=== PATIENT | female | born 1985 | race Caucasian/White ===

== ENCOUNTER 2020-02-11 21:48 | Emergency (ER) | payer MEDICAID ==
[~2020-02-11] VITALS: Ht 157.5 cm; Wt 77.3 kg
--- NOTE | 2020-02-11 22:31 | NUR ---
made aware pt states "i dont feel right" pts HR is in the 120's
--- NOTE | 2020-02-11 23:02 | NUR ---
pt started yelling out for help, when i arrived she was clutching her cheast and saying her cheast hurt really bad, hr was 156. Ekg was done and made aware.
--- NOTE | 2020-02-11 23:04 | NUR ---
vs retook hr 104
[2020-02-11] MEDS ORDERED: LORazepam 2 mg/ml vial IM ONE (23:05)
[2020-02-12 00:52] VITALS: BP 91/64
== END 2020-02-12 00:54 | disposition home or self-care (01) ==
LOC: ER 21:52
DX: S80.862A Insect bite (nonvenomous), left lower leg, initial encounter (principal); R20.2 Paresthesia of skin; F41.9 Anxiety disorder, unspecified; F32.9 Major depressive disorder, single episode, unspecified; Z98.890 Other specified postprocedural states; Z72.89 Other problems related to lifestyle; W57.XXXA Bitten or stung by nonvenomous insect and other nonvenomous arthropods, initial encounter; Y93.89 Activity, other specified; Y92.89 Other specified places as the place of occurrence of the external cause; Y99.8 Other external cause status
CPT/HCPCS: 93005; 96372; 99285; J2060

== ENCOUNTER 2020-04-19 16:17 | Emergency (ER) | payer MEDICAID ==
[~2020-04-19] VITALS: Ht 157.5 cm; Wt 79.5 kg
[2020-04-19 17:55] VITALS: BP 125/92
--- NOTE | 2020-04-19 18:44 | NUR ---
pt is resting quietly on [facility], waiting for linen tech
== END 2020-04-19 20:05 | disposition home or self-care (01) ==
LOC: ER 16:18
DX: M54.32 Sciatica, left side (principal); R20.2 Paresthesia of skin; F41.9 Anxiety disorder, unspecified; F32.9 Major depressive disorder, single episode, unspecified; Z98.890 Other specified postprocedural states; Z72.89 Other problems related to lifestyle
CPT/HCPCS: 93971; 99284

== ENCOUNTER 2020-09-05 15:27 | Emergency (ER) | payer MEDICAID ==
[~2020-09-05] VITALS: Ht 157.5 cm; Wt 79.0 kg
[2020-09-05 15:49] VITALS: BP 179/117
[2020-09-05] MEDS ORDERED: LORA-269 PO (16:15)
[2020-09-05] MEDS ORDERED: AMOX500C2 PO (16:15)
== END 2020-09-05 16:22 | disposition home or self-care (01) ==
LOC: ER 15:27
DX: K08.89 Other specified disorders of teeth and supporting structures (principal); F41.9 Anxiety disorder, unspecified; F32.9 Major depressive disorder, single episode, unspecified; Z72.89 Other problems related to lifestyle; Z98.891 History of uterine scar from previous surgery; Z79.2 Long term (current) use of antibiotics; Z79.899 Other long term (current) drug therapy
CPT/HCPCS: 99283

== ENCOUNTER 2020-10-05 13:11 | Emergency (ER) | payer MEDICAID ==
[~2020-10-05] VITALS: Ht 157.5 cm; Wt 72.4 kg
[~2020-10-05 13:11] MED LIST: LORA-269 PO
[2020-10-05 13:52] VITALS: BP 130/105
[2020-10-06] MEDS ORDERED: LORA-269 PO (17:10)
== END 2020-10-05 16:11 | disposition left against medical advice (07) ==
LOC: ER 13:12
DX: R00.2 Palpitations (principal); F41.9 Anxiety disorder, unspecified; F32.9 Major depressive disorder, single episode, unspecified; Z53.21 Procedure and treatment not carried out due to patient leaving prior to being seen by health care provider
CPT/HCPCS: 93005

== ENCOUNTER 2020-10-06 16:20 | Emergency (ER) | payer MEDICAID ==
[~2020-10-06] VITALS: Ht 157.5 cm; Wt 77.3 kg
[2020-10-06 16:33] VITALS: BP 140/103
[2020-10-06] MEDS ORDERED: LORazepam 1 MG tablet PO ONE (17:10)
[2020-10-06] MEDS ORDERED: LORA-269 PO (17:10)
== END 2020-10-06 17:34 | disposition home or self-care (01) ==
LOC: ER 16:21
DX: F41.9 Anxiety disorder, unspecified (principal); F32.9 Major depressive disorder, single episode, unspecified; Z98.890 Other specified postprocedural states; Z72.89 Other problems related to lifestyle; Z79.899 Other long term (current) drug therapy
CPT/HCPCS: 93005; 99283

== ENCOUNTER 2020-10-08 14:27 | Emergency (ER) | payer MEDICAID ==
[~2020-10-08] VITALS: Ht 157.5 cm; Wt 81.8 kg
[2020-10-08 14:38] VITALS: BP 142/84
== END 2020-10-08 15:36 | disposition home or self-care (01) ==
LOC: ER 14:28
DX: F41.9 Anxiety disorder, unspecified (principal); E05.90 Thyrotoxicosis, unspecified without thyrotoxic crisis or storm; F32.9 Major depressive disorder, single episode, unspecified; Z98.890 Other specified postprocedural states; Z72.89 Other problems related to lifestyle; Z79.899 Other long term (current) drug therapy
CPT/HCPCS: 99281

== ENCOUNTER 2020-11-03 16:23 | Emergency (ER) | payer MEDICAID ==
[~2020-11-03] VITALS: Ht 157.5 cm; Wt 84.1 kg
[2020-11-03 17:30] LABS: BASOPHILS % (AUTO) 0.5 % (0-1); EOSINOPHILS % (AUTO) 0.7 % (0-6); HEMATOCRIT 38.9 % (35.0-45.0); HEMOGLOBIN 13.1 g/dl (12.0-16.0); LYMPHOCYTES # (AUTO) 2.3 X10'3 (1.1-4.8); LYMPHOCYTES % (AUTO) 35.3 % (21-51); MEAN CORPUSCULAR HEMOGLOBIN 30.4 PG (27.0-31.0); MEAN CORPUSCULAR HGB CONC 33.8 g/dL (33.0-36.5); MEAN CORPUSCULAR VOLUME 90.2 FL (78-98); MEAN PLATELET VOLUME 8.3 FL (7.4-10.4); MONOCYTES # (AUTO) 0.5 X10'3 (0-0.9); MONOCYTES % (AUTO) 8.2 % (2-12); NEUTROPHILS # (AUTO) 3.6 X10'3 (1.8-7.7); NEUTROPHILS % (AUTO) 55.3 % (42-75); PLATELET COUNT 287 X10'3 (140-440); RED BLOOD COUNT 4.31 X10'6 (4.20-5.60); RED CELL DISTRIBUTION WIDTH 13.2 % (11.5-14.5); WHITE BLOOD COUNT 6.5 X10'3 (4.5-11.0)
[2020-11-03 17:45] LABS: ALANINE AMINOTRANSFERASE 20 U/L (12-78); ALBUMIN 3.8 G/DL (3.4-5.0); ALBUMIN/GLOBULIN RATIO 1.1 (1.1-1.5); ALKALINE PHOSPHATASE 97 IU/L (46-116); ANION GAP 8 (8-16); ASPARTATE AMINO TRANSFERASE 13 U/L (10-37); BILIRUBIN,TOTAL 0.2 MG/DL (0.1-1.0); BLOOD UREA NITROGEN 9 MG/DL (7-18); BUN/CREATININE RATIO 11.3 (6.6-38.0); CALCIUM 8.7 MG/DL (8.5-10.1); CHLORIDE 104 MMOL/L (99-107); GLUCOSE 93 MG/DL (70-104); POTASSIUM 3.9 MMOL/L (3.5-5.1); SODIUM 139 MMOL/L (135-145); TOTAL CARBON DIOXIDE 26.8 MMOL/L (24-32); TOTAL PROTEIN 7.4 G/DL (6.4-8.2); eGFR 81 ML/MIN
[2020-11-03 18:34] LABS: CLARITY,URINE CLEAR (Clear); COLOR,URINE YELLOW (Yellow); GLUCOSE, URINE NEGATIVE (Neg); KETONES,URINE NEGATIVE (Neg); LEUKOCYTE ESTERASE ,URINE NEGATIVE (Neg); NITRITES, URINE NEGATIVE (Neg); OCCULT BLOOD,URINE TRACE-LYSED (Neg); PH,URINE 6.5 (4.8-8.0); PROTEIN,URINE NEGATIVE (Neg); UA COLLECTION TYPE VOIDED; UROBILINOGEN,URINE 0.2 E.U/dL (0.2-1.0)
[2020-11-03 18:35] LABS: URINE HCG NEGATIVE (NEG)
[2020-11-03 19:09] LABS: BACTERIA,URINE 1+ /HPF (Neg); RBC,URINE 0-2 /HPF (0-2); SQUAMOUS EPITHELIAL CELL,UR MODERATE /LPF (FEW); WBC,URINE 0-4 /HPF (0-4)
[2020-11-03 19:34] VITALS: BP 107/75
== END 2020-11-03 19:36 | disposition home or self-care (01) ==
LOC: ER 16:24
DX: F41.9 Anxiety disorder, unspecified (principal); R42 Dizziness and giddiness; H53.9 Unspecified visual disturbance; F32.9 Major depressive disorder, single episode, unspecified; Z98.890 Other specified postprocedural states; Z72.89 Other problems related to lifestyle; Z79.899 Other long term (current) drug therapy
CPT/HCPCS: 36415; 80053; 81001; 81025; 84443; 85025; 93005; 99284

== ENCOUNTER 2020-11-13 18:40 | Emergency (ER) | payer MEDICAID ==
[~2020-11-13] VITALS: Ht 157.5 cm; Wt 74.5 kg
[2020-11-13 18:52] VITALS: BP 134/88
[2020-11-13] MEDS ORDERED: ibuprofen tablet 400 MG TABLET PO ONE (19:15)
[2020-11-13] MEDS ORDERED: LORazepam 1 MG tablet PO ONE ×2 (19:15→20:40)
[2020-11-13] MEDS ORDERED: LORA-269 PO (20:38)
[2020-11-13] MEDS ORDERED: ketorolac trometh. 30mg/ml inj. IM ONE (20:40)
== END 2020-11-13 20:53 | disposition home or self-care (01) ==
LOC: ER 18:40
DX: F41.9 Anxiety disorder, unspecified (principal); R05 Cough; M79.18 Myalgia, other site; F32.9 Major depressive disorder, single episode, unspecified; Z72.89 Other problems related to lifestyle; Z98.890 Other specified postprocedural states; Z79.899 Other long term (current) drug therapy
CPT/HCPCS: 71045; 96372; 99284; J1885

== ENCOUNTER 2020-11-20 16:37 | Emergency (ER) | payer MEDICAID ==
[~2020-11-20] VITALS: Ht 157.5 cm; Wt 75.8 kg
[2020-11-20 16:53] VITALS: BP 122/80
== END 2020-11-20 17:15 | disposition left against medical advice (07) ==
LOC: ER 16:37
DX: F41.9 Anxiety disorder, unspecified (principal); F32.9 Major depressive disorder, single episode, unspecified; F43.10 Post-traumatic stress disorder, unspecified; Z98.891 History of uterine scar from previous surgery; Z72.89 Other problems related to lifestyle; Z79.899 Other long term (current) drug therapy
CPT/HCPCS: 99281

== ENCOUNTER 2021-01-31 15:50 | Emergency (ER) | payer MEDICAID ==
[~2021-01-31] VITALS: Ht 157.5 cm; Wt 70.0 kg
[2021-01-31 16:05] VITALS: BP 132/81
[2021-01-31] MEDS ORDERED: LORazepam 1 MG tablet PO ONE (16:45)
[2021-01-31] MEDS ORDERED: TERB250T4 PO (16:56)
[2021-01-31] MEDS ORDERED: HYDR-3686 PO (16:56)
== END 2021-01-31 17:00 | disposition home or self-care (01) ==
LOC: ER 15:51
DX: F41.9 Anxiety disorder, unspecified (principal); F32.9 Major depressive disorder, single episode, unspecified; Z98.890 Other specified postprocedural states; Z72.89 Other problems related to lifestyle; Z79.899 Other long term (current) drug therapy
CPT/HCPCS: 99283

== ENCOUNTER 2021-04-18 05:03 | Emergency (ER) | payer MEDICAID ==
[~2021-04-18] VITALS: Ht 162.6 cm; Wt 56.8 kg
[2021-04-18 05:09] VITALS: BP 113/79
--- NOTE | 2021-04-18 07:30 | NUR ---
Pt concerned about not being able to get a ride home and wishes to leave. MD Kalia Cox updated and informed pt has not had labs drawn yet. Pt to be discharged without labwork drawn, gave verbal DC instructions to pt.
== END 2021-04-18 07:50 | disposition home or self-care (01) ==
LOC: ER 05:03
DX: U07.1 COVID-19 (principal); Z72.89 Other problems related to lifestyle; Z98.891 History of uterine scar from previous surgery; Z79.899 Other long term (current) drug therapy
CPT/HCPCS: 71045; 93005; 99283

== ENCOUNTER 2021-05-28 15:02 | Emergency (ER) | payer MEDICAID ==
[~2021-05-28] VITALS: Ht 157.5 cm; Wt 65.9 kg
[2021-05-28 15:23] VITALS: BP 144/88
[2021-05-28] MEDS ORDERED: azithromycin 250mg tablet PO ONE (15:25)
[2021-05-28] MEDS ORDERED: CefTRIAXone 500MG IM Kit w/LIDOcaine IM ONE (15:25)
[2021-05-28 15:49] LABS: CLARITY,URINE SLIGHTLY CLOUDY (Clear); COLOR,URINE YELLOW (Yellow); GLUCOSE, URINE NEGATIVE (Neg); KETONES,URINE NEGATIVE (Neg); PROTEIN,URINE TRACE mg/dl (Neg); UA COLLECTION TYPE VOIDED; URINE HCG NEGATIVE (NEG)
[2021-05-28 15:50] LABS: NITRITES, URINE NEGATIVE (Neg); OCCULT BLOOD,URINE TRACE-INTACT (Neg); UROBILINOGEN,URINE 0.2 E.U/dL (0.2-1.0)
[2021-05-28 15:51] LABS: LEUKOCYTE ESTERASE ,URINE NEGATIVE (Neg)
[2021-05-28] MEDS ORDERED: DOXY100C43 PO (15:53)
[2021-05-28] MEDS ORDERED: LIDO20SO16 PO (15:53)
[2021-05-28] MEDS ORDERED: PENICILLIN G BENZATHINE 2,400,000 UNIT/4 ML SYRINGE IM ONE (15:55)
[2021-05-28 15:56] LABS: MUCUS STRANDS MODERATE /LPF (Neg); SQUAMOUS EPITHELIAL CELL,UR MANY /LPF (FEW)
[2021-05-28 16:00] LABS: BACTERIA,URINE FEW /HPF (Neg); WBC,URINE 0-4 /HPF (0-4)
[2021-05-28] MEDS ORDERED: CefTRIAXone 1000mg IM Kit (w/lidocaine diluent) IM ONE (16:00)
[2021-05-28 16:33] LABS: MONOTEST NEGATIVE (Neg)
== END 2021-05-28 16:50 | disposition home or self-care (01) ==
LOC: ER 15:03
DX: J02.9 Acute pharyngitis, unspecified (principal); F41.9 Anxiety disorder, unspecified; F32.9 Major depressive disorder, single episode, unspecified; Z79.899 Other long term (current) drug therapy
CPT/HCPCS: 36415; 81001; 81025; 86308; 86592; 87081; 87491; 87591; 87880; 96372; 99284; J0561; J0696

== ENCOUNTER 2021-05-30 11:59 | Emergency (ER) | payer MEDICAID ==
[~2021-05-30] VITALS: Ht 157.5 cm; Wt 70.5 kg
[~2021-05-30 11:59] MED LIST changes: +DOXY100C43 PO; +LIDO20SO16 PO
[2021-05-30 12:17] VITALS: BP 120/94
[2021-05-30] MEDS ORDERED: LIDO20SO16 PO (12:34)
[2021-05-30] MEDS ORDERED: NAPR-56 PO (12:34)
[2021-05-30] MEDS ORDERED: METH4TAB3 PO (12:34)
== END 2021-05-30 12:49 | disposition home or self-care (01) ==
LOC: ER 11:59
DX: J02.9 Acute pharyngitis, unspecified (principal); F41.9 Anxiety disorder, unspecified; F32.9 Major depressive disorder, single episode, unspecified; Z98.890 Other specified postprocedural states; Z72.89 Other problems related to lifestyle; Z79.2 Long term (current) use of antibiotics; Z79.899 Other long term (current) drug therapy
CPT/HCPCS: 99283

== ENCOUNTER → 2021-06-10 | Emergency (ER) | payer MEDICAID ==
[~2021-06-10] VITALS: Ht 157.5 cm; Wt 140.0 kg
[~2021-06-10] MED LIST changes: -DOXY100C43 PO; +METH4TAB3 PO; +NAPR-56 PO
[2021-06-10 16:48] VITALS: BP 112/81
[2021-06-10 17:21] LABS: BASOPHILS # (AUTO) 0.1 X10'3 (0-0.2); BASOPHILS % (AUTO) 0.9 % (0-1); EOSINOPHILS % (AUTO) 0.4 % (0-6); HEMATOCRIT 38.6 % (35.0-45.0); LYMPHOCYTES # (AUTO) 1.7 X10'3 (1.1-4.8); LYMPHOCYTES % (AUTO) 26.8 % (21-51); MEAN CORPUSCULAR HEMOGLOBIN 30.4 PG (27.0-31.0); MEAN CORPUSCULAR HGB CONC 33.6 g/dL (33.0-36.5); MEAN CORPUSCULAR VOLUME 90.4 FL (78-98); MEAN PLATELET VOLUME 7.9 FL (7.4-10.4); MONOCYTES # (AUTO) 0.4 X10'3 (0-0.9); MONOCYTES % (AUTO) 5.5 % (2-12); NEUTROPHILS # (AUTO) 4.3 X10'3 (1.8-7.7); NEUTROPHILS % (AUTO) 66.4 % (42-75); PLATELET COUNT 397 X10'3 (140-440); RED BLOOD COUNT 4.27 X10'6 (4.20-5.60); RED CELL DISTRIBUTION WIDTH 14.1 % (11.5-14.5); WHITE BLOOD COUNT 6.4 X10'3 (4.5-11.0)
[2021-06-10 17:31] LABS: HCG SERUM QL NEGATIVE
[2021-06-10 17:32] LABS: ALANINE AMINOTRANSFERASE 19 U/L (12-78); ALBUMIN 3.8 G/DL (3.4-5.0); ALKALINE PHOSPHATASE 89 IU/L (46-116); ANION GAP 12 (8-16); ASPARTATE AMINO TRANSFERASE 15 U/L (10-37); BILIRUBIN,TOTAL 0.5 MG/DL (0.1-1.0); BLOOD UREA NITROGEN 10 MG/DL (7-18); BUN/CREATININE RATIO 11.5 (6.6-38.0); CALCIUM 9.2 MG/DL (8.5-10.1); CHLORIDE 104 MMOL/L (99-107); CREATININE 0.87 MG/DL (0.40-0.90); GLUCOSE 134 MG/DL (70-104); POTASSIUM 4.1 MMOL/L (3.5-5.1); SODIUM 139 MMOL/L (135-145); TOTAL CARBON DIOXIDE 23.2 MMOL/L (24-32); TOTAL PROTEIN 7.8 G/DL (6.4-8.2); eGFR 73 ML/MIN
[2021-06-10 17:53] LABS: D-DIMER 0.41 MG/L FEU (0-0.50)
== END | disposition home or self-care (01) ==
LOC: ER 16:38
DX: R63.4 Abnormal weight loss (principal); F41.9 Anxiety disorder, unspecified; F32.9 Major depressive disorder, single episode, unspecified; R05.9 Cough, unspecified; R06.02 Shortness of breath; R42 Dizziness and giddiness; R11.2 Nausea with vomiting, unspecified
CPT/HCPCS: 36415; 80053; 84703; 85025; 85379; 93005; 99284

== ENCOUNTER 2021-11-27 19:03 | Emergency (ER) | payer MEDICAID ==
[~2021-11-27] VITALS: Ht 157.5 cm; Wt 70.5 kg
[~2021-11-27 19:03] MED LIST changes: -NAPR-56 PO
[2021-11-27 20:03] VITALS: BP 128/92
[2021-11-27] MEDS ORDERED: DIAZ2TAB3 PO (21:32)
[2021-11-27] MEDS ORDERED: LORazepam 1 MG tablet PO ONE (21:35)
== END 2021-11-27 21:51 | disposition home or self-care (01) ==
LOC: ER 19:04
DX: F32.A Depression, unspecified (principal); Z76.0 Encounter for issue of repeat prescription; F41.9 Anxiety disorder, unspecified; Z79.899 Other long term (current) drug therapy
CPT/HCPCS: 99283

== ENCOUNTER 2021-12-23 15:58 | Emergency (ER) | payer MEDICAID ==
[~2021-12-23] VITALS: Ht 157.5 cm; Wt 70.0 kg
[~2021-12-23 15:58] MED LIST changes: +DIAZ2TAB3 PO
[2021-12-23 16:13] VITALS: BP 125/88
[2021-12-23] MEDS ORDERED: DIAZ10TA4 PO (16:51)
== END 2021-12-23 17:07 | disposition home or self-care (01) ==
LOC: ER 16:00
DX: F41.9 Anxiety disorder, unspecified (principal); Z76.0 Encounter for issue of repeat prescription; F32.9 Major depressive disorder, single episode, unspecified; Z98.890 Other specified postprocedural states; Z72.89 Other problems related to lifestyle; Z79.899 Other long term (current) drug therapy
CPT/HCPCS: 99281

== ENCOUNTER 2022-01-02 14:52 | Emergency (ER) | payer MEDICAID ==
[~2022-01-02 14:52] MED LIST changes: +DIAZ10TA4 PO
== END 2022-01-02 16:08 | disposition left against medical advice (07) ==
LOC: ER 14:53
DX: S61.219A Laceration without foreign body of unspecified finger without damage to nail, initial encounter (principal); Z53.21 Procedure and treatment not carried out due to patient leaving prior to being seen by health care provider; X58.XXXA Exposure to other specified factors, initial encounter; Y93.89 Activity, other specified; Y92.89 Other specified places as the place of occurrence of the external cause; Y99.8 Other external cause status

== ENCOUNTER 2022-02-23 14:09 | Emergency (ER) | payer MEDICAID ==
[~2022-02-23] VITALS: Ht 157.5 cm; Wt 65.9 kg
[2022-02-23 14:15] VITALS: BP 110/74
[2022-02-23 15:22] LABS: URINE AMPHETAMINE SCREEN NEGATIVE (Neg); URINE BARBITUATE SCREEN NEGATIVE (Neg); URINE BENZODIAZEPINES SCREEN POSITIVE (Neg); URINE CANNABINOID SCREEN NEGATIVE (Neg); URINE COCAINE SCREEN NEGATIVE (Neg); URINE METHADONE SCREEN NEGATIVE (Neg); URINE PHENCYCLIDINE SCREEN NEGATIVE (Neg)
== END 2022-02-23 15:32 | disposition home or self-care (01) ==
LOC: ER 14:11
DX: R41.0 Disorientation, unspecified (principal); R11.10 Vomiting, unspecified; F41.9 Anxiety disorder, unspecified; F32.A Depression, unspecified; Z98.890 Other specified postprocedural states; Z79.899 Other long term (current) drug therapy
CPT/HCPCS: 80305; 99283

== ENCOUNTER 2022-08-12 16:38 | Emergency (ER) | payer MEDICAID ==
[~2022-08-12] VITALS: Ht 157.5 cm; Wt 65.0 kg
[2022-08-12] MEDS ORDERED: morphine 4 MG/ML inj SYRINge IV ONE (16:50)
[2022-08-12] MEDS ORDERED: normal saline 1000ML IV soln IVB ONE (16:50)
[2022-08-12] MEDS ORDERED: ondansetron/PF 4mg/2ml inj IV ONE (16:50)
[2022-08-12 17:56] LABS: BASOPHILS # (AUTO) 0.1 X10'3 (0-0.2); BASOPHILS % (AUTO) 0.6 % (0-1); EOSINOPHILS % (AUTO) 0.5 % (0-6); HEMOGLOBIN 12.2 g/dl (12.0-16.0); LYMPHOCYTES # (AUTO) 1.4 X10'3 (1.1-4.8); LYMPHOCYTES % (AUTO) 14.5 % (21-51); MEAN CORPUSCULAR HEMOGLOBIN 30.4 PG (27.0-31.0); MEAN CORPUSCULAR HGB CONC 33.9 g/dL (33.0-36.5); MEAN CORPUSCULAR VOLUME 89.5 FL (78-98); MEAN PLATELET VOLUME 8.3 FL (7.4-10.4); MONOCYTES # (AUTO) 0.4 X10'3 (0-0.9); MONOCYTES % (AUTO) 4.3 % (2-12); NEUTROPHILS # (AUTO) 7.8 X10'3 (1.8-7.7); NEUTROPHILS % (AUTO) 80.1 % (42-75); PLATELET COUNT 242 X10'3 (140-440); RED BLOOD COUNT 4.02 X10'6 (4.20-5.60); RED CELL DISTRIBUTION WIDTH 13.2 % (11.5-14.5); WHITE BLOOD COUNT 9.7 X10'3 (4.5-11.0)
[2022-08-12 18:08] LABS: ALANINE AMINOTRANSFERASE 17 U/L (12-78); ALBUMIN 3.8 G/DL (3.4-5.0); ALBUMIN/GLOBULIN RATIO 1.2 (1.1-1.5); ALKALINE PHOSPHATASE 87 IU/L (46-116); ANION GAP 3 (8-16); ASPARTATE AMINO TRANSFERASE 18 U/L (10-37); BILIRUBIN,TOTAL 0.3 MG/DL (0.1-1.0); BLOOD UREA NITROGEN 12 MG/DL (7-18); CALCIUM 8.7 MG/DL (8.5-10.1); CHLORIDE 106 MMOL/L (99-107); ETHANOL < 0.010 GM/DL (0.0-0.010); GLUCOSE 117 MG/DL (70-104); LIPASE 93 U/L (73-393); POTASSIUM 4.2 MMOL/L (3.5-5.1); SODIUM 138 MMOL/L (135-145); TOTAL CARBON DIOXIDE 29.2 MMOL/L (24-32); TOTAL PROTEIN 6.9 G/DL (6.4-8.2); eGFR 80 ML/MIN
[2022-08-12 18:09] VITALS: BP 117/81
[2022-08-12 18:55] LABS: URINE HCG NEGATIVE (NEG)
[2022-08-12] MEDS ORDERED: iohexol 300mg/ml 100ml inj. ONE (18:57)
[2022-08-12 19:00] LABS: CLARITY,URINE CLOUDY (Clear); COLOR,URINE YELLOW (Yellow); GLUCOSE, URINE NEGATIVE (Neg); KETONES,URINE NEGATIVE (Neg); LEUKOCYTE ESTERASE ,URINE NEGATIVE (Neg); NITRITES, URINE NEGATIVE (Neg); OCCULT BLOOD,URINE NEGATIVE (Neg); PROTEIN,URINE NEGATIVE (Neg); UROBILINOGEN,URINE 0.2 E.U/dL (0.2-1.0)
[2022-08-12 19:10] LABS: UA COLLECTION TYPE CLN CATCH MIDSTREAM
[2022-08-12 19:11] LABS: BACTERIA,URINE 2+ /HPF (Neg); MUCUS STRANDS FEW /LPF (Neg); SQUAMOUS EPITHELIAL CELL,UR MANY /LPF (FEW)
[2022-08-12 19:12] LABS: RBC,URINE 0-2 /HPF (0-2); WBC,URINE 0-4 /HPF (0-4)
== END 2022-08-12 19:10 | disposition left against medical advice (07) ==
LOC: ER 16:39
DX: R10.11 Right upper quadrant pain (principal); R11.2 Nausea with vomiting, unspecified; F41.9 Anxiety disorder, unspecified; F32.9 Major depressive disorder, single episode, unspecified; Z72.89 Other problems related to lifestyle; Z98.890 Other specified postprocedural states; Z79.899 Other long term (current) drug therapy
CPT/HCPCS: 36415; 80053; 80320; 81001; 81025; 83690; 85025; 96361; 96374; 96375; 99284; J2270; J2405; J3490; J7030; Q9967

== ENCOUNTER 2023-06-09 13:53 | Emergency (ER) | payer MEDICAID ==
[~2023-06-09] VITALS: Ht 157.5 cm; Wt 63.6 kg
[2023-06-09 13:56] VITALS: BP 125/88; PULSE 88; RESP 18; TEMP 98.5; O2SAT 96
== END 2023-06-09 14:48 | disposition left against medical advice (07) ==
LOC: ER 13:53
DX: H57.89 Other specified disorders of eye and adnexa (principal); Z53.21 Procedure and treatment not carried out due to patient leaving prior to being seen by health care provider
CPT/HCPCS: 99281

== ENCOUNTER 2024-01-09 14:14 | Emergency (ER) | payer MEDICAID ==
[~2024-01-09] VITALS: Ht 157.5 cm; Wt 72.7 kg
[2024-01-09 14:19] VITALS: TEMP 97.7
[2024-01-09 15:01] LABS: BASOPHILS % (AUTO) 0.3 % (0-1); EOSINOPHILS % (AUTO) 0.7 % (0-6); HEMATOCRIT 35.7 % (35.0-45.0); HEMOGLOBIN 11.8 g/dl (12.0-16.0); LYMPHOCYTES # (AUTO) 1.1 X10'3 (1.1-4.8); LYMPHOCYTES % (AUTO) 19.9 % (21-51); MEAN CORPUSCULAR HEMOGLOBIN 30.8 PG (27.0-31.0); MEAN CORPUSCULAR HGB CONC 32.9 g/dL (33.0-36.5); MEAN CORPUSCULAR VOLUME 93.4 FL (78-98); MEAN PLATELET VOLUME 8.1 FL (7.4-10.4); MONOCYTES # (AUTO) 0.5 X10'3 (0-0.9); MONOCYTES % (AUTO) 8.6 % (2-12); NEUTROPHILS # (AUTO) 3.7 X10'3 (1.8-7.7); NEUTROPHILS % (AUTO) 70.5 % (42-75); PLATELET COUNT 215 X10'3 (140-440); RED BLOOD COUNT 3.82 X10'6 (4.20-5.60); RED CELL DISTRIBUTION WIDTH 13.9 % (11.5-14.5); WHITE BLOOD COUNT 5.3 X10'3 (4.5-11.0)
[2024-01-09 15:22] LABS: ALANINE AMINOTRANSFERASE 32 U/L (12-78); ALBUMIN 3.4 G/DL (3.4-5.0); ALKALINE PHOSPHATASE 97 IU/L (46-116); ANION GAP 8 (8-16); ASPARTATE AMINO TRANSFERASE 28 U/L (10-37); BILIRUBIN,TOTAL 0.6 MG/DL (0.1-1.0); BLOOD UREA NITROGEN 15 MG/DL (7-18); BUN/CREATININE RATIO 21.7 (10.0-20.0); CALCIUM 8.4 MG/DL (8.5-10.1); CHLORIDE 101 MMOL/L (99-107); CREATININE 0.69 MG/DL (0.40-0.90); GLUCOSE 104 MG/DL (70-104); POTASSIUM 4.1 MMOL/L (3.5-5.1); SODIUM 135 MMOL/L (135-145); TOTAL CARBON DIOXIDE 26.2 MMOL/L (24-32); TOTAL PROTEIN 6.9 G/DL (6.4-8.2); eCRCL 87 ML/MIN; eGFR > 90 ML/MIN
[2024-01-09] MEDS: methylPREDNISolone sod succ 125mg/2ml vial IV ONE (16:00)
[2024-01-09 17:05] LABS: BILIRUBIN,URINE NEGATIVE (Neg); CLARITY,URINE CLEAR (Clear); COLOR,URINE YELLOW (Yellow); GLUCOSE, URINE NEGATIVE (Neg); KETONES,URINE 15 mg/dl (Neg); LEUKOCYTE ESTERASE ,URINE NEGATIVE (Neg); NITRITES, URINE NEGATIVE (Neg); OCCULT BLOOD,URINE NEGATIVE (Neg); PH,URINE 6.5 (4.8-8.0); PROTEIN,URINE NEGATIVE (Neg); URINE HCG NEGATIVE (NEG); UROBILINOGEN,URINE 0.2 E.U/dL (0.2-1.0)
[2024-01-09] MEDS: acetaminophen 1,000mg/100ml IV 100 ML IV ONE (17:08)
[2024-01-09] MEDS: acetaminophen 1,000mg/100ml IV 100 ML IV SCH (17:08)
[2024-01-09 17:43] LABS: UA COLLECTION TYPE CLN CATCH MIDSTREAM
[2024-01-09] MEDS: diazepam inj 5 MG/ML inj. IV ONE (18:46)
[2024-01-09 19:23] VITALS: BP 124/75; PULSE 71; RESP 16; O2SAT 98
== END 2024-01-09 19:52 | disposition left against medical advice (07) ==
LOC: ER 14:14
DX: R27.8 Other lack of coordination (principal); R55 Syncope and collapse; Z79.899 Other long term (current) drug therapy; Z98.890 Other specified postprocedural states
CPT/HCPCS: 36415; 70551; 80053; 81003; 81025; 85025; 96374; 96375; 99285; J0131; J2919; 64415; 70553

== ENCOUNTER 2024-12-18 10:19 | Emergency (ER) | payer MEDICAID ==
[~2024-12-18] VITALS: Ht 157.5 cm; Wt 93.4 kg
[2024-12-18 10:19] VITALS: BP 132/88; PULSE 75; RESP 16; O2SAT 98
--- NOTE | 2024-12-18 10:51 | Physician Documentation ---
History of Present Illness ~ Chief Complaint: Urinary Symptoms Stated Complaint: URINARY COMPLICATIONS Time Seen by MD: 10:41 OK to notify your PCP?: Yes Primary Medical Doctor: ERIN AT [facility] Source: patient Mode of Arrival: POV Exam Limitations: no limitations HPI 39-year-old female who is here with lower abdominal pain as well as urinary frequency for two days and pain with urination. Patient states it feels like when she has had urinary tract infections. No pre arrival treatment. No vaginal pain or discharge, flank pain, fever, chills, nausea or vomiting. Not on menstrual cycle, states that she has not had her cycle in months. Has not had intercourse in 2years. Medication Reconciliation Allergies: Coded Allergies: amantadine (Unverified Allergy, Unknown, 09/27/24) Scheduled Diazepam (Diazepam), 1 TAB PO DAILY Diazepam (Diazepam), 1 TAB PO HS Lidocaine Hcl (Xylocaine Viscous), 5 ML PO Q2H PRN SORE THROAT Lidocaine Hcl (Xylocaine Viscous), 5 ML PO Q2H PRN SORE THROAT Lorazepam (Ativan), 1 TAB PO Q8H Lorazepam (Ativan), 1 TAB PO Q12H Methylprednisolone (Medrol), 1 DOSPAK PO UD Scheduled PRN Lorazepam (Ativan), 1 TAB PO Q8H PRN for for anxiety/agitation Past Medical History Past Medical History: *INFECTIOUS DZ*, Colon Cancer, *PSYCH*, Anxiety, Depression Past Surgical History: , other Alcohol Use: Heavy Drug Use: none Lives In: Home Occupation: employed Review of Systems All Other Systems at this time: Reviewed and Negative Physical Exam Vital Signs: Temperature: 98.0, Source: Oral, Heart Rate: 75, Respiratory Rate: 16, BP: 132/88, Pulse Oximetry: 98, Weight: 93.400 Oxygen Flow Rate: 0 Physical Exam GENERAL: Alert, no acute distress. HEENT: NCAT, EOMI, PERRL. NECK: Supple, trachea midline. CARDIAC: Regular rate and rhythm, no murmurs, rubs, or gallops. RESPIRATORY: Equal breath sounds, clear to auscultation bilaterally, no respiratory distress. GASTROINTESTINAL: Non distended, soft, SUPRAPUBIC TTP, no guarding or rebound. No CVA ttp. MUSCULOSKELETAL: Normal gait. NEUROLOGICAL: Awake, alert, and oriented x 3. SKIN: Warm/dry, no pallor, no rash. PSYCH: Alert and appropriate. Affect congruent with mood. Speech is clear. Good eye contact. Progress Results/Orders Results/Orders Orders - WILLIE GREEN Ultrasound Kidney Non Vasc (12/18/24 11:35) Vital Signs 12/18/24 10:19 Temp 98.0 Pulse 75 Resp 16 B/P (MAP) 132/88 Pulse Ox 98 O2 Flow Rate 0 Laboratory Tests Test 12/18/24 10:24 Urine Specimen Description Cln catch midstream Urine Color Yellow Urine Clarity Slightly cloudy Urine pH 6.0 Urine Specific [place] >=1.030 Urine Protein Negative Urine Glucose (UA) Negative Urine Ketones Negative Urine Occult Blood Moderate H Urine Nitrite Negative Urine Bilirubin Negative Urine Urobilinogen 0.2 Urine Leukocyte Esterase Negative Urine RBC 3-10 Urine WBC 0-4 Urine Squamous Epithelial Cells Many Urine Bacteria 3+ Urine Mucus Few Urine Culture Indicated Not ind Volume Urine Centrifuged 10 ml Urine HCG, Qualitative Negative Urine Comment Medical Decision Making Urinary Diff Dx:Considerations: Include: AAA, , Aortic dissection, Appendicitis, Bowel obstruction, Cholelithiasis, Choleangitis, DJD, Ectopic , Hepatitis, HNP, Impaction, Intrauterine , Musculoskeletal p ain, Ovarian torsion, Pancreatitis, PID, Post-Op complication, Pyelonephritis, Renal failure, Strain, Urinary Obstruction, Urolithiasis, Urinary retention, UTI, Vaginitis Additional Comment DUE TO BLOOD IN URINE AND H/O KIDNEY STONES EVEN THOUGH PATIENT IS LAYING COMFORTABLY ON GURNEY AND DOES NOT PRESENT LIKE A KIDNEY STONE, I ORDERED U/S TO MAKE SURE NO INDIRECT EVIDENCE SUCH HYDRONEPHROSIS WHICH THERE WAS NOT. Departure Time of Disposition: 10:50 Disposition: 01 HOME / SELF CARE / HOMELESS Impression: Primary Impression: Hematuria Qualified Codes: R31.9 - Hematuria, unspecified Additional Impression: Suprapubic pain, acute Condition: Stable Discharge Instructions: Dysuria Additional Instructions: PYRIDIUM PRESCRIBED DISCUSSED URINE NEGATIVE FOR INFECTION U/S NEGATIVE FOR HYDRONEPHROSIS RETURN TO ER IF FLANK PAIN, NAUSEA, VOMITING, FEVER, CHILLS OR PAIN WITH URINATION DOES NOT RESOLVE Referrals: NO PRIMARY CARE PROVIDER (PCP) Prescriptions Phenazopyridine Hcl (Pyridium tablet) 100 Mg Tablet 2 TAB PO TID, #12 TAB Prov: WILLIE GREEN 12/18/24 Education Educated: Patient Educated regarding: diagnosis, treatment, need for follow up Signature Scribe Signature: x Attestation: WILLIE Troncoso Dec 18, 2024 10:51
[2024-12-18 11:14] LABS: BILIRUBIN,URINE NEGATIVE (Neg); CLARITY,URINE SLIGHTLY CLOUDY (Clear); COLOR,URINE YELLOW (Yellow); GLUCOSE, URINE NEGATIVE (Neg); KETONES,URINE NEGATIVE (Neg); LEUKOCYTE ESTERASE ,URINE NEGATIVE (Neg); NITRITES, URINE NEGATIVE (Neg); OCCULT BLOOD,URINE MODERATE (Neg); PROTEIN,URINE NEGATIVE (Neg); UROBILINOGEN,URINE 0.2 E.U/dL (0.2-1.0)
[2024-12-18 11:15] LABS: URINE HCG NEGATIVE (NEG)
[2024-12-18 11:18] LABS: UA COLLECTION TYPE CLN CATCH MIDSTREAM
[2024-12-18 11:19] LABS: MUCUS STRANDS FEW /LPF (Neg); SQUAMOUS EPITHELIAL CELL,UR MANY /LPF (FEW)
[2024-12-18 11:20] LABS: BACTERIA,URINE 3+ /HPF (Neg)
[2024-12-18 11:21] LABS: WBC,URINE 0-4 /HPF (0-4)
[2024-12-18 12:17] VITALS: TEMP 98
[2024-12-18] MEDS ORDERED: PHEN-786 PO (12:17)
--- NOTE | 2024-12-18 12:36 | RADIOLOGY REPORT ---
INDICATION: blood in urine, h/o kidney stones, lower abdominal pain TECHNIQUE: Multiple real-time sonographic images of the kidneys and bladder were obtained. COMPARISON: None FINDINGS: The right kidney measures 11.8 cm in length, which is normal in size. There is normal echog enicity of the right kidney. No hydronephrosis. The left kidney measures 11.6 cm in length, which is normal in size. There is normal echogenicity of the left kidney. No hydronephrosis. The urinary bladder is decompressed which limits evaluation. IMPRESSION: 1. Normal sonographic appearance of the kidneys. No hydronephrosis.
== END 2024-12-18 12:18 | disposition home or self-care (01) ==
LOC: ER 10:19
DX: R31.9 Hematuria, unspecified (principal); R10.30 Lower abdominal pain, unspecified; F41.9 Anxiety disorder, unspecified; F32.A Depression, unspecified; F10.90 Alcohol use, unspecified, uncomplicated; Z85.038 Personal history of other malignant neoplasm of large intestine; Z88.8 Allergy status to other drugs, medicaments and biological substances; Z79.899 Other long term (current) drug therapy; Y90.9 Presence of alcohol in blood, level not specified
CPT/HCPCS: 76700; 81001; 81025; 99284

== ENCOUNTER 2025-02-08 19:36 | Emergency (ER) | payer MEDICAID ==
[~2025-02-08] VITALS: Ht 157.5 cm; Wt 90.9 kg
[~2025-02-08 19:36] MED LIST changes: +ATOR40TA PO; +BUPR-94 PO; +CLON0.5T5 PO; -DIAZ10TA4 PO; -DIAZ2TAB3 PO; +HYDR-3686 PO; -LIDO20SO16 PO; -LORA-269 PO; -METH4TAB3 PO; +NALT50TA5 PO; +PRAZ5CAP2 PO; +SERT-434 PO; +TRAZ-256 PO; +gabapentin capsule PO
--- NOTE | 2025-02-08 19:58 | ELECTROCARDIOGRAPH REPORT ---
[facility] Test Date: 2025-02-08 Test Time: 19:55:37 Pat Name: SHELDON CAMEJO Department: [facility]- Patient ID: [id number] Room: Gender: F Card Grader: : 1985 Requested By: PRICILLA AUSTIN Order Number: [id number] Reading MD: Dr. Pricilla Austin Measurements Intervals [place] Rate: 115 P: 41 NM: 168 QRS: 61 QRSD: 105 T: -22 QT: 332 QTc: 460 Interpretive Statements Sinus tachycardia Probable left atrial enlargement Low voltage, precordial leads RSR' in V1 or V2, right VCD or RVH Borderline T abnormalities, diffuse leads Baseline wander in lead(s) I,III,aVL Electronically Signed On 02-08-2025 20:09:[address] Pricilla Austin Please click the below link to view image of tracing.
[2025-02-08 20:07] LABS: MEAN PLATELET VOLUME 8.1 FL (7.4-10.4); RED CELL DISTRIBUTION WIDTH 13.3 % (11.5-14.5)
--- NOTE | 2025-02-08 20:21 | RADIOLOGY REPORT ---
EXAM: DI CHEST,SINGLE VIEW CLINICAL HISTORY: CP TECHNIQUE: Single PA view of the chest WID: COMPARISON: CHEST,SINGLE VIEW on DOS: 04/18/21 FINDINGS: Lines and tubes: None Chest: The heart size and pulmonary vasculature is within normal limits. No pleural effusion, pneumothorax, or consolidation. The osseous structures are grossly intact. IMPRESSION: No acute cardiopulmonary abnormality.
[2025-02-08 20:37] LABS: CREATININE 0.91 MG/DL (0.40-0.90); PRO BRAIN NATRIURETIC PEPTIDE < 30 PG/ML (0-125); TOTAL CARBON DIOXIDE 24.9 MMOL/L (24-32); eCRCL 64 ML/MIN; eGFR 68 ML/MIN
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
[2025-02-09 00:07] VITALS: BP 107/70; PULSE 82; RESP 16; TEMP 97.6; O2SAT 100
== END 2025-02-09 00:08 | disposition home or self-care (01) ==
LOC: ER 19:37
DX: R06.02 Shortness of breath (principal); R07.89 Other chest pain; R11.0 Nausea; F10.90 Alcohol use, unspecified, uncomplicated; Z85.038 Personal history of other malignant neoplasm of large intestine; Z88.8 Allergy status to other drugs, medicaments and biological substances; Y90.9 Presence of alcohol in blood, level not specified
CPT/HCPCS: 36415; 71045; 80048; 83880; 84484; 85025; 93005; 99285

== ENCOUNTER 2025-02-14 15:02 | Emergency (ER) | payer MEDICAID ==
[~2025-02-14] VITALS: Ht 157.5 cm; Wt 91.4 kg
[~2025-02-14 15:02] MED LIST changes: -NALT50TA5 PO
[2025-02-14 15:34] VITALS: BP_DIAS 72
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
[2025-02-14 18:58] VITALS: BP_SYST 111; PULSE 80; RESP 16; TEMP 98.2; O2SAT 100
== END 2025-02-14 19:01 | disposition home or self-care (01) ==
LOC: ER 15:03
DX: Z00.00 Encounter for general adult medical examination without abnormal findings (principal); H92.01 Otalgia, right ear; F60.3 Borderline personality disorder; F10.90 Alcohol use, unspecified, uncomplicated; Z85.038 Personal history of other malignant neoplasm of large intestine; Z88.8 Allergy status to other drugs, medicaments and biological substances; Y90.9 Presence of alcohol in blood, level not specified
CPT/HCPCS: 99282

== ENCOUNTER 2025-02-21 18:24 | Emergency (ER) | payer MEDICAID ==
[~2025-02-21] VITALS: Ht 157.5 cm; Wt 91.2 kg
--- NOTE | 2025-02-21 18:52 | Physician Documentation ---
History of Present Illness ~ Chief Complaint: Headache Stated Complaint: HEADACHE Time Seen by MD: 19:26 OK to notify your PCP?: Yes Primary Medical Doctor: none Source: patient Mode of Arrival: [facility] 40-year-old female who presents for a headache which started this morning. She is also seeing flashes of light in her right eye and is having some numbness in her right hand. She is currently followed by a neurologist at [facility] and notes that the headaches and vision changes have been addressed by the neurologist in the past. She is declining any CT imaging of her head due to recent radiation exposure. Medication Reconciliation Allergies: Coded Allergies: amantadine (Unverified Allergy, Unknown, 12/22/24) Scheduled Atorvastatin Calcium* (Lipitor*), 1 TAB PO DAILY Bupropion Hcl (Wellbutrin Xl), 300 MG PO DAILY Prazosin HCl (Prazosin HCl), 1 CAP PO HS Sertraline HCl (Sertraline HCl), 1 TAB PO DAILY Trazodone HCl (Trazodone HCl), 2 TAB PO HS [gabapentin capsule], 300 MG PO TID Scheduled PRN Clonazepam (Clonazepam), 1 TAB PO TID PRN for anxiety, (Reported) Hydroxyzine Hcl* (Atarax*), 1 TAB PO TID PRN for ITCHING Past Medical History Past Medical History: *INFECTIOUS DZ*, Colon Cancer, *PSYCH*, Anxiety, Depression Past Surgical History: , other Patient History: Borderline personality disorder MOTHER FH: lupus FATHER Hodgkin's lymphoma GRANDFATHER OR GRANDMOTHER Alcohol Use: Heavy Drug Use: none Lives In: Home Occupation: employed Review of Systems All Other Systems at this time: Reviewed and Negative ROS As stated above in the HPI, otherwise all systems are reviewed and negative. Physical Exam Vital Signs: RN Vital Signs have been reviewed: Yes, Temperature: 97.6, Heart Rate: 72, Respiratory Rate: 16, BP: 103/69, Pulse Oximetry: 99, Weight: 91.150 Oxygen Flow Rate: 0 Pulse Oximetry Reflects: adequate oxygenation Physical Exam General: Alert, no distress. HEENT: No injection, moist mucous membranes. Neck: Full range of motion. Respiratory: No respiratory distress, equal chest rise and fall. Chest: No accessory muscle use. Cardiovascular: Regular rate and rhythm. Gastrointestinal: Nondistended. Extremities: Normal range of motion, no deformity. Neurologic: Oriented x4. Psychiatric: Normal mood and affect. Skin: Normal color, warm and dry. Progress Results/Orders Results/Orders Orders - SHELDON HALEY Liz [employer] Acetaminophen 1,000mg/100ml Iv (Ofirmev (02/21/25 20:00) Diphenhydramine Oral Solution (Hydramine (02/21/25 19:45) Completed Orders - SHELDON HALEY Liz [employer] Ketorolac Trometh 15mg/Ml Vial (Toradol (02/21/25 19:45) Metoclopramide Inj (Reglan Inj) (02/21/25 19:45) Normal Saline 1000ml (0.9% Sodium Chlori (02/21/25 19:45) Medications Received in ER Medications (Trade) Dose Ordered Sig/Zac Route PRN Reason Start Time Stop Time Status Last Admin Dose Admin (Toradol injection) 15 mg ONCE ONCE IM 02/21/25 19:45 02/21/25 19:48 DC 02/21/25 20:27 15 MG Acetaminophen 100 ml @ 400 mls/hr Q6H IV 02/21/25 20:00 02/22/25 19:44 02/21/25 20:33 400 MLS/HR (Hydramine oral solution) 25 mg Q6H PRN PO itching 02/21/25 19:45 02/21/25 20:31 25 MG (Reglan inj) 5 mg ONCE ONCE IV 02/21/25 19:45 02/21/25 19:55 DC 02/21/25 20:32 5 MG (0.9% sodium chloride (NS) 1000ml IV soln) 1,000 ml ONCE ONCE IVB 02/21/25 19:45 02/21/25 19:48 DC 02/21/25 20:27 1,000 ML Vital Signs 02/21/25 18:27 Temp 97.6 Pulse 72 Resp 16 B/P (MAP) 103/69 Pulse Ox 99 O2 Flow Rate 0 Medical Decision Making Findings This patient presents with a headache most consistent with benign headache from either tension type headache vs migraine. No headache red flags. Neurologic exam without evidence of meningismus, AMS, focal neurologic findings so doubt meningitis, encephalitis, stroke. Presentation not consistent with acute intracranial bleed to include SAH (lack of risk factors, headache history). No history of trauma so doubt ICH. Given history and physical temporal arteritis un likely, as is acute angle closure glaucoma. Doubt carotid artery dissection given no focal neuro deficits, no neck trauma or recent neck strain. Patient with no signs of increased intracranial pressure or weight loss and history and physical suggest more benign headache so less likely mass effect in brain from tumor or abscess or idiopathic intracranial hypertension. Pain was controlled with headache cocktail and patient discharged home with PMD follow up. Differential Dx:Considerations: Include: MAN-Cluster, MAN-Migraine, MAN- Hypertensive, MAN-Muscular contraction, MAN-Post lumbar puncture, Carbon monoxide toxicity, Close head injuyr, CVA, Fever induced, Hemorrhage-Epidural, Hemorrhage-Intracerebral, Hemorrhage-Subarachnoid, Hemorrhage-Subdural, Mass lesion, Meningitis, Post-traumtic, Pseudotumor cerebri, Sinusitis, Temporal arteritis, Trigeminal neuralgia, Other Departure Disposition: 01 HOME / SELF CARE / HOMELESS Impression: Primary Impression: Headache Additional Impression: Migraine Condition: Stable Discharge Instructions: Chronic Migraine Headache, [id number], Migraine Headache Additional Instructions: This patient presents with a headache most consistent with benign headache from either tension type headache vs migraine. No headache red flags. Neurologic exam without evidence of meningismus, AMS, focal neurologic findings so doubt meningitis, encephalitis, stroke. Presentation not consistent with acute intracranial bleed to include SAH (lack of risk factors, headache history). No history of trauma so doubt ICH. Given history and physical temporal arteritis unlikely, as is acute angle closure glaucoma. Doubt carotid artery dissection given no focal neuro deficits, no neck trauma or recent neck strain. Patient with no signs of increased intracranial pressure or weight loss and history and physical suggest more benign headache so less likely mass effect in brain from tumor or abscess or idiopathic intracranial hypertension. Pain was controlled with headache cocktail and patient discharged home with PMD follow up Referrals: NO PRIMARY CARE PROVIDER (PCP) Education Educated: Patient Educated regarding: diagnosis, treatment, need for follow up Additional Comment Medical Screen Exam This patient recieved a medical screening examination. After reviewing the individual's medical complaints with presenting symptoms and performing an appro priate physical examination, it was determined that no immediate life- threatening emergency medical condition is present. This individual is also not a women having contractions. Signature Scribe Signature: A Attestation: Scribed for Sheldon Haley by SHA Isidro . 02/21/25 21:15 JEREMY SIDDIQI [facility] Feb 21, 2025 18:51 SHELDON HALEY [facility] Feb 21, 2025 19:43
[2025-02-21] MEDS: ketorolac trometh 15mg/ml vial 15 MG/ML ML IM ONE (20:27)
[2025-02-21] MEDS: normal saline 1000ML IV soln IVB ONE (20:27)
[2025-02-21] MEDS: diphenhydrAMINE 25 MG/10 ML UD oral solution PO PRN (20:31)
[2025-02-21] MEDS: metoclopramide 5 mg/ml inj IV ONE (20:32)
[2025-02-21] MEDS: acetaminophen 1,000mg/100ml IV 100 ML IV SCH (20:33)
[2025-02-21 21:20] VITALS: BP 111/68; PULSE 69; RESP 18; TEMP 98.6; O2SAT 99
== END 2025-02-21 21:21 | disposition home or self-care (01) ==
LOC: ER 18:25
DX: G43.909 Migraine, unspecified, not intractable, without status migrainosus (principal); F41.9 Anxiety disorder, unspecified; F32.A Depression, unspecified; Z88.8 Allergy status to other drugs, medicaments and biological substances; Z85.038 Personal history of other malignant neoplasm of large intestine; Z79.899 Other long term (current) drug therapy
CPT/HCPCS: 96361; 96372; 96374; 96375; 99284; J0131; J1885; J2765; J7030; Q0163